=== PATIENT | female | born 1950 | race Caucasian/White ===

== ENCOUNTER 2018-10-10 21:31 | Emergency (ER) | payer OTHER ==
[2018-10-10] MEDS: HYDROCODONE/APAP (5/325) TAB PO (22:49)
[2018-10-10] MEDS: AMOXICILLIN/CLAV 875 MG TAB PO (22:51)
[2018-10-10] MEDS: BACITRACIN/POLYMYXIN 28.35 GM OINT TOP (22:51)
[2018-10-10] MEDS: LIDOCAINE 1% (MDV) 20 ML INJ SC (23:06)
[2018-10-11] MEDS: ONDANSETRON (ODT) 4 MG TAB ODT (00:09)
== END 2018-10-11 01:07 | disposition home or self-care (01) ==
LOC: FTE 10-11 01:07
DX: S61.411A Laceration without foreign body of right hand, initial encounter (principal); S61.511A Laceration without foreign body of right wrist, initial encounter; S51.811A Laceration without foreign body of right forearm, initial encounter; S61.512A Laceration without foreign body of left wrist, initial encounter; S61.451A Open bite of right hand, initial encounter; W54.0XXA Bitten by dog, initial encounter; Y92.9 Unspecified place or not applicable
CPT/HCPCS: 12004; 73090-RT; 73130-RT; 99283-25